=== PATIENT | male | born 1980 | race Caucasian/White ===

== ENCOUNTER → 2020-03-17 | Outpatient (CLI) | payer BC ==
--- NOTE | 2020-03-17 13:33 | ECHOF ---
Referral Reason:I10 Hypertension MEASUREMENTS -------- HEIGHT: 180.3 cm WEIGHT: 102.1 kg BP: RVIDd: 2.8 cm (< 3.3) IVSd: 1.5 cm (0.6 - 1.1) LVIDd: 3.5 cm (3.9 - 5.3) LVPWd: 1.5 cm (0.6 - 1.1) IVSs: 1.9 cm LVIDs: 2.6 cm LVPWs: 2.3 cm LAESV Index (A-L): 12.35 ml/m Ao Diam: 2.9 cm (2.0 - 3.7) AV Cusp: 2.1 cm (1.5 - 2.6) MV EXCURSION: 17.918 mm (> 18.000) MV EF SLOPE: 68 mm/s (70 - 150) EPSS: 0.5 cm MV E [place]: 0.40 m/s MV DecT: 248 ms MV A [place]: 0.66 m/s MV E/A Ratio: 0.61 RAP: 5.00 mmHg RVSP: 15.06 mmHg FINDINGS -------- Sinus rhythm. This was a technically adequate study. The left ventricular size is normal. There is moderate concentric left ventricular hypertrophy. O verall left ventricular systolic function is mild-moderately impaired with, an EF between 40 - 45 %. Basal anterior LV wall motion is hypokinetic. Basal inferior LV wall motion is hypokinetic. B gaby inferoseptal LV wall motion is hypokinetic. Mid anterior LV wall motion is hypokinetic. Mi d inferior LV wall motion is hypokinetic. Mid inferoseptal LV wall motion is hypokinetic. The right ventricle is normal in size. Normal LA size by volume 22+/-6 ml/m2. The right atrial size is normal. Interatrial and interventricular septum intact. There is no evidence of aortic regurgitation. There is no evidence of aortic stenosis. No mitral regurgitation. Mild tricuspid regurgitation present. There is no evidence of pulmonary hypertension. The right v entricular systolic pressure, as measured by Doppler, is 15.06mmHg. There is no pulmonic regurgitation present. The aortic root size is normal. Normal inferior vena cava with normal inspiratory collapse consistent with estimated right atrial pre ssure of 5 mmHg. There is no pericardial effusion. CONCLUSIONS -------- 1. The left ventricular size is normal. 2. There is moderate concentric left ventricular hypertrophy. 3. Overall left ventricular systolic function is mild-moderately impaired with, an EF between 40 - 45 %. 4. Basal anterior LV wall motion is hypokinetic. 5. Basal inferior LV wall motion is hypokinetic. 6. Basal inferoseptal LV wall motion is hypokinetic. 7. Mid anterior LV wall motion is hypokinetic. 8. Mid inferior LV wall motion is hypokinetic. 9. Mid inferoseptal LV wall motion is hypokinetic. 10. Mild tricuspid regurgitation present. CHIEF INFORMATION OFFICER: eTa Morris RDCS
--- NOTE | 2020-03-17 13:41 | P.STRESS ---
- Stress Test Note Stress Test Results/Findings: Exam Performed: stress test Exam Date: 03/17/20 Reason for Exam: HTN Height: 5 ft 11 in Weight: 102.3 kg Protocol: FLAKITO TREADMILL Stage: 3 Duration of Exercise: 9:00 MINUTES Resting Heart Rate: 104 Resting Blood Pressure: 116/90 Maximum Achieved Heart Rate: 178 Maximum Achieved Blood Pressure: 171/71 85% PMHR: 156 100% PMHR: 183 METS: 10.3 Technologist Comment: Stress Test Results/Findings: Patient underwent exercise stress EKG with a Flakito protocol treadmill stress test. Patient exercised into Stage 3 for a total of 9 minutes reaching a total of and 10.3 METS. Patient's maximum heart rate was 178 which represented 97 % age-predicted maximum heart rate. Stress EKG findings: At baseline patient's EKG showed normal sinus rhythm, normal axis, no significant ST-T wave abnormalities. At peak exercise, EKG showed no significant ST or T wave abnormalities. Patient did have 2 episodes of ventricular couplets with exercise. Conclusions: 1. Normal EKG response to exercise without evidence of inducible ischemia. Occasional ventricular couplets noted with exercise, clinical correlation recommended. 2. Good exercise capacity.
== END | disposition home or self-care (01) ==
LOC: RADNMMAIN 10:22
PROVIDERS: ATTEND Family Medicine
DX: I07.1 Rheumatic tricuspid insufficiency (principal); I50.1 Left ventricular failure, unspecified
CPT/HCPCS: 93017; 93306

== ENCOUNTER → 2020-04-09 | Outpatient (CLI) | payer BC ==
--- NOTE | 2020-04-09 18:54 | XR ---
EXAMINATION TYPE: XR chest 2V DATE OF EXAM: 04/09/2020 COMPARISON: NONE TECHNIQUE: PA and lateral views submitted. HISTORY: Cough FINDINGS: The lungs are clear and there is no pneumothorax, pleural effusion, or focal pneumonia. Heart size normal. No overt failure. IMPRESSION: 1. No acute process.
== END | disposition home or self-care (01) ==
LOC: RAD 16:53
PROVIDERS: ATTEND Nurse Practitioner
DX: R05 Cough (principal)
CPT/HCPCS: 71046

== ENCOUNTER → 2020-05-27 | Outpatient (CLI) | payer BC ==
--- NOTE | 2020-05-27 18:25 | CONS ---
CONSULTATION DATE OF SERVICE: 05/27/2020 This is a 39-year-old gentleman who has been evaluated in the sleep center for possible obstructive sleep apnea-hypopnea syndrome. HISTORY OF PRESENT ILLNESS/SLEEP-WAKE EVALUATION: Patient's usual sleep schedule on working days is from 10:30 or 11:30 p.m. until 6 or 7 a.m., on weekends from 11 or 11:30 p.m. until 7:30 or 8 a.m. Usually no problems with falling asleep. No TV in bedroom. The patient sleeps in different positions, including back, side and stomach. He snores, according to his , and he wakes up from sleep with nocturia up to one time. At the same time, in the morning the patient wakes up tired and may feel sleepy during the day. [place] Sleepiness Scale is 6. PAST MEDICAL HISTORY: Positive for hypertension, occasional rhinitis. PAST SURGICAL HISTORY: None. MEDICATIONS: 1. Lisinopril 10 mg once a day. 2. Carvedilol 3.125 mg twice a day. REVIEW OF SYSTEMS: Snoring, episodes of tiredness during the day. FAMILY HISTORY: Thyroid problems. PHYSICAL EXAMINATION: GENERAL: A pleasant gentleman without distress. VITAL SIGNS: BP 130/80, HR 94, RR 15, height 5 feet 11 inches, weight 224.6, temperature 97.5, oxygen saturation at room air 95%. BMI 31.2. HEENT: PERRLA, EOMI. Evaluation of oropharynx showed tongue protrudes midline. Moderately low position of soft palate. Mallampati II to III. NECK: Supple. No JVD. Thyroid is not palpable. Neck measures 16 inches in circumference. LUNGS: Clear to percussion and to auscultation. Good air exchange. No wheezing or rhonchi. HEART: S1, S2 regular. No murmurs, gallops or rubs. ABDOMEN: Soft and nontender. Bowel sounds are present. No organomegaly appreciated. EXTREMITIES: No clubbing or cyanosis. CLAIM TAKER: Awake, alert, and oriented X3. Cranial nerves 2 to 7 intact. There is no fasciculation or atrophy. noted. No focal deficits observed. IMPRESSION: 1. Snoring, awakenings from sleep, moderately low position of soft palate, feeling tiredness in the morning after awakening; possible obstructive sleep apnea-hypopnea syndrome. 2. Hypertension. 3. Obesity. BMI 31.2. 4. History of episodes of rhinitis recently. PLAN: 1. Home sleep apnea test for checking breathing during sleep. 2. Watching weight. 3. Sleep hygiene with regular time in bed for 7-1/2 to 8 hours. 4. No driving if feeling sleepiness. 5. Preferable position during sleep is on the side. Thank you very much for referring this patient for consultation. Sincerely, Saran Vergara MD, PhD, FAASM Diplomat of [employer] Buyer of [facility] MMODL / IJN: [id number] /
== END | disposition home or self-care (01) ==
LOC: SLEEP 16:53
PROVIDERS: ATTEND Internal Medicine
DX: R06.83 Snoring (principal); I10 Essential (primary) hypertension; E66.9 Obesity, unspecified; Z68.31 Body mass index [BMI] 31.0-31.9, adult; Z87.09 Personal history of other diseases of the respiratory system; Z99.89 Dependence on other enabling machines and devices; Z79.899 Other long term (current) drug therapy
CPT/HCPCS: 99211

== ENCOUNTER 2021-06-17 06:21 | Day surgery (SDC) | payer BC ==
[2021-06-15 18:17] VITALS: BMI 30.9
[~2021-06-17 06:21] MED LIST: ACETAMINOPHEN TAB 500 MG TAB PO PRN; DEXAMETHASONE SOD PHOSPHATE 4 MG/ML 1 ML VIAL IV ONE; HEPARIN SODIUM,PORCINE/PF 5,000 UNIT/0.5 ML SYRINGE SQ PRN; LACTATED RINGERS 1,000 ML IV SCH; MIDAZOLAM 2 MG/2 ML VIAL IV PRN; ONDANSETRON 4 MG/2 ML VIAL IVP ONE; SCOPOLAMINE 1.5MG/72HR PATCH TRANSDERM ONE; metroNIDAZOLE-NS PMX 500 MG in SALINE 1 100ML.BAG IVPB PRN
[2021-06-17] MEDS ORDERED: HYDROmorphone 0.5 MG/0.5 ML SYRINGE IVP PRN (07:00)
--- NOTE | 2021-06-17 07:00 | P.GSHP ---
History of Present Illness H&P Date: 06/17/21 Chief Complaint: Pilonidal cyst 40-year-old male here today for surgical treatment of his pilonidal cyst. Patient has had recurrent symptoms over the years. He has had flareups at least 4 times. No active drainage. Never required incision and drainage in the past. Past Medical History Past Medical History: Hypertension, Sleep Apnea/CPAP/BIPAP Additional Past Medical History / Comment(s): Hx arrhythmia. c/o heartburn. Kidney stone x5. Mild sleep apnea, uses CPAP. Hx Pilondial cyst, current flare. History of Any Multi-Drug Resistant Organisms: None Reported Additional Past Surgical History / Comment(s): wisdom teeth removed as child Past Anesthesia/Blood Transfusion Reactions: No Reported Reaction Additional Past Anesthesia/Blood Transfusion Reaction / Comment(s): no known anesthesia problems Smoking Status: Never smoker - Past Family History Mother Family Medical History: Cancer Additional Family Medical History / Comment(s): "cancer under liver" Father Family Medical History: Pulmonary Embolus Medications and Allergies Home Medications Medication Instructions Recorded Confirmed Type Carvedilol [Coreg] 6.25 mg PO BID 06/15/21 06/15/21 History Famotidine [Pepcid] 20 mg PO DAILY 06/15/21 06/15/21 History Lisinopril [Zestril] 10 mg PO DAILY 06/15/21 06/15/21 History Montelukast Sodium [Singulair] 10 mg PO HS 06/15/21 06/15/21 History Allergies Allergy/AdvReac Type Severity Reaction Status Date / Time No Known Allergies Allergy Verified 06/17/21 06:43 Surgical - Exam Vital Signs Temp Pulse Resp BP Pulse Ox 97.6 F 85 18 122/76 98 06/17/21 06:45 06/17/21 06:45 06/17/21 06:45 06/17/21 06:45 06/17/21 06:45 Physical exam: General: Well-developed, well-nourished HEENT: Normocephalic, sclerae nonicteric Abdomen: Nontender, nondistended Extremities: No edema Neuro: Alert and oriented Pilonidal cyst with 2 separate areas of scarring and skin openings along the intergluteal cleft Assessment and Plan (1) Pilonidal cyst Narrative/Plan: 40-year-old male with pilonidal cyst. We'll proceed with surgical excision at this time with plans for immediate closure. Possible need for drain placement. Risks of bleeding, infection, scarring, recurrence, wound formation, pain reviewed. He understands and wishes to proceed. Current Visit: Yes Status: Acute Code(s): L05.91 - PILONIDAL CYST WITHOUT ABSCESS SNOMED Code(s): 83228628
[2021-06-17] MEDS ORDERED: PROPOFOL 10 MG/ML 20 ML VIAL IV ONE (07:30)
[2021-06-17] MEDS ORDERED: ePHEDrine 50 MG/ML 1 ML VIAL ONE (07:30)
[2021-06-17] MEDS ORDERED: KETOROLAC 15 MG/ML 1 ML VIAL ONE (07:30)
[2021-06-17] MEDS ORDERED: MIDAZOLAM 2 MG/2 ML VIAL ONE (07:30)
[2021-06-17] MEDS ORDERED: SUCCINYLCHOLINE CHLORIDE 100 MG/5 ML SYR IV ONE (07:30)
[2021-06-17] MEDS ORDERED: fentaNYL (PF) 50 MCG/ML 2 ML AMP ONE (07:30)
[2021-06-17] MEDS ORDERED: LIDOCAINE 1% INJ 10MG/ML (20 ML MDV) ONE (07:30)
[2021-06-17] MEDS ORDERED: PHENYLEPHRINE-0.9% NACL SYG 1,000 MCG/10 ML SYRINGE ONE (07:30)
[2021-06-17] MEDS ORDERED: BUPIVACAIN-EPI 0.25%-1:200,000 30 ML VIAL SQ ONE ×3 (07:38→08:20)
[2021-06-17] MEDS ORDERED: LACTATED RINGERS 1,000 ML IV ONE (08:30)
[2021-06-17 09:06] VITALS: TEMP 97.1
[2021-06-17] MEDS ORDERED: HYDROcodone/APAP 5-325MG 1 EACH TAB PO PRN (09:06)
[2021-06-17] MEDS ORDERED: NALOXONE 0.4 MG/ML 1 ML VIAL IV PRN (09:06)
--- NOTE | 2021-06-17 09:12 | P.OP ---
Date of Procedure: 06/17/21 Procedure(s) Performed: PREOPERATIVE DIAGNOSIS: Pilonidal cyst POSTOPERATIVE DIAGNOSIS: Same PROCEDURE: Pilonidal cystectomy SURGEON: Alan AGUILARL: Minimal ANESTHESIA: General COMPLICATIONS: None OPERATIVE PROCEDURE: Patient was placed prone on the operating table after general anesthesia was achieved. The gluteal crease was prepped and draped in usual sterile fashion after the patient was placed in the prone jackknife position. The patient had a wound present that was nondraining in the right upper aspect of the gluteal crease. There was also a scar present in the midline and inferior to that was a skin sinus opening in the gluteal crease. No fluctuance was present. Skin markings were used to delineate the anticipated excision site. [place] cleft lift technique was utilized. An elliptical incision was made to the right side of the buttock encompassing the medial aspect of the right buttock where the wound was present and coming around just on the left side of the midline crease. Dissection through the subcutaneous tissues took place using electrocautery. The least amount of dissection took place that was required. No tunneling was seen in the periphery. Skin flap was raised to the left approximately 3-4 cm. The wound was then irrigated fully with saline. No bleeding was seen. The subcutaneous tissues were reapproximated using interrupted 2-0 Vicryl sutures. A 10 round drain was placed above the deeper closure layer. This exited from the left side and sutured to the skin using a 3-0 silk stitch. The dermal layer was then reapproximated using interrupted 3-0 Vicryl sutures. The skin was then closed using a running 3-0 Monocryl suture. The incision was off the midline to the right by a distance of approximately 1cm. Marcaine solution plain was utilized as local anesthesia. Skin glue was used along the length of the skin closure. A sterile dressing was applied at that time. DISPOSITION: Stable to recovery room
[2021-06-17 09:45] VITALS: RESP 16
[2021-06-17 09:55] VITALS: BP 126/72; PULSE 72
== END 2021-06-17 10:31 | disposition home or self-care (01) ==
LOC: OR 06:21
PROVIDERS: ATTEND Surgery
DX: L05.91 Pilonidal cyst without abscess (principal); I10 Essential (primary) hypertension; G47.33 Obstructive sleep apnea (adult) (pediatric)
CPT/HCPCS: 11770; 88304; J2250; J1100; J0690; J2405; J2001; J3010; J1885; J2370; J0330; J2704; J1644

== ENCOUNTER → 2022-09-13 | Outpatient (CLI) | payer BC ==
--- NOTE | 2022-09-13 16:31 | XR ---
EXAMINATION TYPE: XR chest 2V DATE OF EXAM: 09/13/2022 COMPARISON: 04/15/2021 HISTORY: Chest pain TECHNIQUE: Frontal and lateral views of the chest are obtained. FINDINGS: There is no focal air space opacity. No evidence for pneumothorax. No pleural effusion. The cardiac silhouette size is within normal limits. The osseous structures are grossly intact. IMPRESSION: 1. No acute cardiopulmonary process.
== END | disposition home or self-care (01) ==
LOC: RADXRMAIN 15:58
PROVIDERS: ATTEND Family Medicine
DX: J20.9 Acute bronchitis, unspecified (principal)
CPT/HCPCS: 71046

== ENCOUNTER → 2023-06-22 | Outpatient (CLI) | payer BC ==
--- NOTE | 2023-06-25 07:07 | XR ---
"EXAMINATION TYPE: XR wrist complete RT DATE OF EXAM: 06/22/2023 COMPARISON: None HISTORY: Effusion right wrist TECHNIQUE: 4 view right wrist FINDINGS: There is a transverse fracture through the mid scaphoid. This is slight diastases. Mild dif fuse soft tissue swelling is present No additional fractures are evident. Joint spaces appear preserved. IMPRESSION: 1. Transverse fracture mid scaphoid. A [place] level critical message alert has been initiated for Joss Hunt MD via the [employer] 36 0 | Critical Results System on 06/25/2023 7:05 AM. This message alert has been sent to Joss Hunt MD via the preferences provided by the clinician for the receipt of Radiology Critical Findings. [facility] ID [id number]."
== END | disposition home or self-care (01) ==
LOC: RADXRMAIN 17:02
PROVIDERS: ATTEND Family Medicine
DX: S62.001A Unspecified fracture of navicular [scaphoid] bone of right wrist, initial encounter for closed fracture (principal); M25.431 Effusion, right wrist; X58.XXXA Exposure to other specified factors, initial encounter

== ENCOUNTER → 2023-07-03 | Outpatient (CLI) | payer BC ==
--- NOTE | 2023-07-03 11:50 | CT ---
EXAMINATION TYPE: CT wrist RT wo con DATE OF EXAM: 07/03/2023 COMPARISON: Plain films 06/22/2023 HISTORY: pre op, displaced wrist fx CT DLP: 116.8 mGycm Automated exposure control for dose reduction was used. Contrast: None Technique: Axial images 2 mm thick sections. Reconstructed images in the coronal and sagittal planes. FINDINGS: There is a transverse fracture through the mid scaphoid. Alignment and positioning appears unremarkab le. No significant diastases. There is some prominence of the scapholunate space measuring 4.6 mm. If there is clinical concern for scapholunate disassociation, consider MRI for additional evaluation. No additional fractures are identified. IMPRESSION: 1. TRANSVERSE FRACTURE MID SCAPHOID. 2. SCAPHOLUNATE DISASSOCIATION NOT EXCLUDED. CONSIDER MRI IF CLINICALLY INDICATED.
== END | disposition home or self-care (01) ==
LOC: RADCTMAIN 10:55
PROVIDERS: ATTEND Orthopaedic Surgery Hand Surgery
DX: S62.021A Displaced fracture of middle third of navicular [scaphoid] bone of right wrist, initial encounter for closed fracture (principal)